=== PATIENT | male | born 1960 | race Hispanic/Latino ===

== ENCOUNTER 2023-01-21 17:08 | Emergency (ER) | payer BC, OTHER ==
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
[2023-01-21] MEDS ORDERED: HYDROCODONE/APAP 5/325 MG TAB ONE (18:48)
[2023-01-21 18:58] VITALS: BP 155/97; TEMP 98.1; O2SAT 100
== END 2023-01-21 18:47 | disposition home or self-care (01) ==
LOC: ER 17:08
DX: M54.2 Cervicalgia (principal); V49.40XA Driver injured in collision with unspecified motor vehicles in traffic accident, initial encounter
CPT/HCPCS: 71046; 72040; 72100; 99283